=== PATIENT | female | born 1950 | race Hispanic/Latino ===

== ENCOUNTER → 2021-09-04 | Outpatient (CLI) | payer MEDICARE | END | disposition home or self-care (01) | LOC: SHCH 07:56 | PROVIDERS: ATTEND Internal Medicine Cardiovascular Disease | DX: I35.0 Nonrheumatic aortic (valve) stenosis (principal); I25.10 Atherosclerotic heart disease of native coronary artery without angina pectoris; I10 Essential (primary) hypertension; E11.9 Type 2 diabetes mellitus without complications; E78.5 Hyperlipidemia, unspecified | CPT/HCPCS: 93306 ==

== ENCOUNTER 2021-10-13 05:45 | Observation (INO) | payer MEDICARE ==
[2021-10-09 14:49] LABS: BASOPHILS % (AUTO) 0.4 % (0.0-5.0); EOSINOPHILS % (AUTO) 2.5 % (0.0-8.0); HEMATOCRIT 32.3 % (36-48); LYMPHOCYTES % (AUTO) 32.1 % (21.0-51.0); MEAN CORPUSCULAR HGB CONC 32.8 g/dL (32.0-36.0); MEAN CORPUSCULAR VOLUME 88.3 fL (79-99); MONOCYTES % (AUTO) 7.6 % (3.0-13.0); NEUTROPHILS % (AUTO) 56.9 % (40.0-77.0); PLATELET COUNT (AUTO) 230 K/uL (130-400); RED BLOOD CELL COUNT(AUTO) 3.66 MIL/uL (4.00-5.50); RED CELL DISTRIBUTION WIDTH 13.2 % (11.0-15.5); WHITE BLOOD COUNT (AUTO) 9.1 K/uL (4.8-10.8)
[2021-10-09 14:54] LABS: APPEARANCE,URINE CLEAR (CLEAR); BILIRUBIN,URINE NEGATIVE (NEGATIVE); COLOR,URINE YELLOW (YELLOW); GLUCOSE, URINE (UA) NEGATIVE (NEGATIVE); KETONES,URINE NEGATIVE (NEGATIVE); LEUKOCYTE ESTERASE ,URINE TRACE (NEGATIVE); NITRATE,URINE NEGATIVE (NEGATIVE); OCCULT BLOOD,URINE NEGATIVE (NEGATIVE); PROTEIN,URINE NEGATIVE (NEGATIVE); UROBILINOGEN,URINE 0.2 mg/dL (0.2-1.0)
[2021-10-09 14:58] LABS: POTASSIUM 4.6 mmol/L (3.5-5.1)
[2021-10-09 15:01] LABS: INR 0.93 (0.85-1.15); PROTHROMBIN TIME 9.9 SEC (9.6-11.6)
[2021-10-09 15:02] LABS: PARTIAL THROMBOPLASTIN TIME 29.4 SEC (26.3-35.5)
[2021-10-09 15:03] LABS: RBC,URINE None Seen /HPF (0-1)
[2021-10-09 15:04] LABS: BACTERIA,URINE Rare /HPF (None Seen)
[2021-10-09 15:16] LABS: B-TYPE NATRIURETIC PEPTIDE 34 pg/mL (0-100)
[2021-10-10 10:33] VITALS: BP 150/62
[~2021-10-13] VITALS: Ht 152.4 cm; Wt 667.7 kg
[2021-10-13] VITALS (12 sets, daily range): BP systolic 93–146; BP diastolic 43–79
[~2021-10-13 05:45] MED LIST: 0.9% NACL 500ML IV.SOLN 500 ML IV SCH; AMLO-258 PO; ATOR40TA71 PO; CALC-1125 PO; CLOP75TA14 PO; GLYB5TAB8 PO; HYDR25TA PO; LISI40TA9 PO; METF-445 PO; METO-391 PO
[2021-10-13] MEDS ORDERED: 0.9%NACL 1000ML 1,000 ML IV ONE (06:24)
[2021-10-13] MEDS ORDERED: NITROGLYCERIN 50MG VIAL ONE (07:15)
[2021-10-13] MEDS ORDERED: LIDOCAINE HCL-MPF 2% 10ML AMP IJ ONE (07:15)
[2021-10-13] MEDS ORDERED: DiphenhydrAMINE HCL 50 MG/ML VIAL ONE (07:15)
[2021-10-13] MEDS ORDERED: IOHEXOL-350 50ML VIAL IV ONE (07:15)
[2021-10-13] MEDS ORDERED: FAMOTIDINE 20MG VIAL IV ONE (07:16)
[2021-10-13] MEDS ORDERED: IOHEXOL 350 MG/ML 100ML INFUS..BTL IV ONE (07:18)
[2021-10-13] MEDS ORDERED: HEPARIN 10,000 UNIT/10ML (1,000 UNIT/ML) VIAL ONE (08:46)
[2021-10-13] MEDS ORDERED: FENTANYL CITRATE PF 50 MCG/1 ML 2ML VIAL ONE (10:14)
[2021-10-13] MEDS ORDERED: PRASUGREL HCL 10 MG TABLET ONE (10:45)
[2021-10-13] MEDS ORDERED: GLUCAGON 1MG KIT 1 MG ML IM PRN (11:00)
[2021-10-13] MEDS ORDERED: 0.9%NACL 1000ML 1,000 ML IV SCH (11:00)
[2021-10-13] MEDS ORDERED: DEXTROSE 50%-WATER 50 ML DISP.SYRIN IV PRN (11:00)
[2021-10-13] MEDS ORDERED: CILOSTAZOL 100 MG TAB PO SCH (11:00)
[2021-10-13] MEDS: INSULIN HUMULIN R 100 UNIT/ML 3ML SQ SCH ×3 (11:30→21:04)
[2021-10-13] MEDS ORDERED: RIVAROXABAN 2.5 MG TABLET PO SCH (13:00)
[2021-10-13] MEDS: CILOSTAZOL 100 MG TAB PO SCH (21:04)
[2021-10-13] MEDS: RIVAROXABAN 2.5 MG TABLET PO SCH (21:05)
[2021-10-14 03:55] VITALS: BP 122/63
[2021-10-14] MEDS: INSULIN HUMULIN R 100 UNIT/ML 3ML SQ SCH ×3 (06:09→16:47)
[2021-10-14] MEDS: RIVAROXABAN 2.5 MG TABLET PO SCH (07:59)
[2021-10-14] MEDS: CILOSTAZOL 100 MG TAB PO SCH (07:59)
[2021-10-14 08:59] VITALS: BP 125/59
[2021-10-14] MEDS ORDERED: GLYBURIDE 5 MG TABLET PO SCH (10:28)
[2021-10-14] MEDS ORDERED: HYDROCHLOROTHIAZIDE 25 MG TABLET PO SCH (10:28)
[2021-10-14] MEDS ORDERED: AMLODIPINE 5 MG TAB PO SCH (10:29)
[2021-10-14] MEDS ORDERED: CALCIUM CARB 500MG PO SCH (10:30)
[2021-10-14 12:09] VITALS: BP 123/52
[2021-10-14] MEDS ORDERED: CILO100T PO (16:41)
[2021-10-14] MEDS ORDERED: RIVA2.5T PO (16:41)
[2021-10-14] MEDS ORDERED: PRAS10TA9 PO (16:41)
[2021-10-14 16:45] VITALS: BP 131/77
[2021-10-14] MEDS ORDERED: METOPROLOL SUCCINATE 50 MG TAB.SR.24H PO SCH (21:00)
[2021-10-14] MEDS ORDERED: LISINOPRIL 40 MG TABLET PO SCH (21:00)
[2021-10-15] MEDS ORDERED: ATORVASTATIN 40 MG TABLET PO SCH (09:00)
== END 2021-10-14 17:02 | disposition home or self-care (01) ==
LOC: DAH 05:45 → INTOOBSV 05:46 → OBSVTOIN 05:46 → DAHIP 05:46 → DAH 05:46 → 2AH 16:23
PROVIDERS: ADMIT Internal Medicine; ATTEND Internal Medicine
DX: I25.119 Atherosclerotic heart disease of native coronary artery with unspecified angina pectoris (principal); I35.0 Nonrheumatic aortic (valve) stenosis; I10 Essential (primary) hypertension; E11.65 Type 2 diabetes mellitus with hyperglycemia; E16.2 Hypoglycemia, unspecified; E78.5 Hyperlipidemia, unspecified; E78.00 Pure hypercholesterolemia, unspecified; Z79.01 Long term (current) use of anticoagulants; Z79.02 Long term (current) use of antithrombotics/antiplatelets; Z79.84 Long term (current) use of oral hypoglycemic drugs; Z79.899 Other long term (current) drug therapy; Z98.890 Other specified postprocedural states
CPT/HCPCS: 80048; 83880; 85025; 85610; 85730; 81001; 36415 ×2; 71045; 93005; 93460; 93571; 85347 ×3; 82948 ×7; C1769 ×3; C1887 ×2; C1894 ×4; C1760; C1893; C1874; Q9965; G0378 ×30; J1200; J3490 ×3; J3010; J7030; J1644 ×3; Q9967 ×2; J1815 ×4; A4215; A4223 ×3; A4554; A4335; A4222; A4221; A4663; A4216; A4606; C9600

== ENCOUNTER 2021-10-24 10:20 | Emergency (ER) | payer MEDICARE ==
[~2021-10-24] VITALS: Ht 144.8 cm; Wt 66.2 kg
[~2021-10-24 10:20] MED LIST changes: -0.9% NACL 500ML IV.SOLN 500 ML IV SCH; +CILO100T PO; -CLOP75TA14 PO; +PRAS10TA9 PO; +RIVA2.5T PO
[2021-10-24 10:22] VITALS: BP 134/65
== END 2021-10-24 12:38 | disposition home or self-care (01) ==
LOC: EDH 10:20
DX: S30.1XXA Contusion of abdominal wall, initial encounter (principal); E11.9 Type 2 diabetes mellitus without complications; I10 Essential (primary) hypertension; Z88.6 Allergy status to analgesic agent; Z79.84 Long term (current) use of oral hypoglycemic drugs; Z79.899 Other long term (current) drug therapy; Z98.890 Other specified postprocedural states; X58.XXXA Exposure to other specified factors, initial encounter; Y93.89 Activity, other specified; Y92.89 Other specified places as the place of occurrence of the external cause; Y99.8 Other external cause status
CPT/HCPCS: 76882

== ENCOUNTER → 2022-04-15 | Outpatient (CLI) | payer MEDICARE ==
[~2022-04-15] MED LIST changes: -CILO100T PO; +CILO100T3 PO
[2022-04-15 09:31] LABS: CREATININE 1.2 mg/dL (0.5-1.5); POTASSIUM 4.2 mmol/L (3.5-5.1)
== END | disposition home or self-care (01) ==
LOC: LAB 08:33
PROVIDERS: ATTEND Internal Medicine Cardiovascular Disease
DX: I25.10 Atherosclerotic heart disease of native coronary artery without angina pectoris (principal)
CPT/HCPCS: 36415; 80048

== ENCOUNTER → 2022-05-11 | Outpatient (CLI) | payer MEDICARE ==
[~2022-05-11] MED LIST changes: +IOHEXOL 350 MG/ML 100ML INFUS..BTL IV ONE
== END | disposition home or self-care (01) ==
LOC: RAH 05-05 07:40
PROVIDERS: ATTEND Internal Medicine Cardiovascular Disease
DX: I25.10 Atherosclerotic heart disease of native coronary artery without angina pectoris (principal); I51.7 Cardiomegaly; Z95.5 Presence of coronary angioplasty implant and graft
CPT/HCPCS: 74174; 75574; Q9967 ×2

== ENCOUNTER 2024-11-14 06:53 | Day surgery (SDC) | payer MEDICARE ==
--- NOTE | 2024-11-10 10:41 | EKG ---
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
[2024-11-10 11:08] VITALS: BP 129/57; PULSE 67; RESP 18; TEMP 97.7
[2024-11-10 11:08] LABS: IMMATURE GRANULOCYTE ABSOLUTE 0.03 K/uL (0-1); NUCLEATED RED BLOOD CELLS 0.0 % (0.0-0.19); PLATELET COUNT (AUTO) 234 K/uL (130-400); RED BLOOD CELL COUNT(AUTO) 3.35 MIL/uL (4.00-5.50); RED CELL DISTRIBUTION WIDTH 15.6 % (11.0-15.5); WHITE BLOOD COUNT (AUTO) 6.3 K/uL (4.8-10.8)
[2024-11-10 11:25] LABS: INR 0.96 (0.85-1.15)
[2024-11-10 11:32] LABS: CREATININE 1.7 mg/dL (0.5-1.0); GLOMERULAR FILTR. RATE CALC 32.0 mL/min (>90); GLUCOSE,RANDOM 197.0 mg/dL (70-105); SODIUM SERUM 129.0 mmol/L (136-145); UREA NITROGEN, BLOOD 11.0 mg/dL (7-18)
--- NOTE | 2024-11-10 12:56 | NUR ---
report reported sodium and chloride to gladys ervin np. received orders to repeat am of procedure
--- NOTE | 2024-11-11 10:58 | HMCIMG ---
CHEST 1VW REASON: PRE-OP COMPARISON: Prior chest radiograph from 07/14/2022 is available. FINDINGS: Single view of the chest was obtained. Lungs are clear. Heart size is normal. Patient is status post median sternotomy with cardiac prostheses in place. There is a right internal jugular tunneled hemodialysis catheter with tip in superior vena cava.. There is no pulmonary vascular congestion. Mediastinum and bony thorax appear unremarkable. IMPRESSION: 1. No acute cardiac pulmonary process 2. Status post median sternotomy with cardiac breasts in place 3. There is a right-sided hemodialysis catheter with tip in superior vena cava..
[2024-11-14] VITALS (10 sets, daily range): BP systolic 108–163; BP diastolic 42–57; PULSE 52–66; RESP 10–18; TEMP 97–97.7
[~2024-11-14] VITALS: Ht 152.4 cm; Wt 61.2 kg
[~2024-11-14 06:53] MED LIST changes: -AMLO-258 PO; -ATOR40TA71 PO; +AURYXIA PO; -CALC-1125 PO; +CHOL100046 PO; -CILO100T3 PO; +CLOP75TA32 PO; +FOLI0.8T43 PO; -HYDR25TA PO; -IOHEXOL 350 MG/ML 100ML INFUS..BTL IV ONE; +LIDO5CRE2 TP; -LISI40TA9 PO; -METO-391 PO; +METO-408 PO; -PRAS10TA9 PO; -RIVA2.5T PO; +ROSU40TA88 PO; +SACU1TAB7 PO
[2024-11-14] MEDS: 0.9%NACL 1000ML 1,000 ML IV SCH (07:38)
[2024-11-14 07:41] LABS: CREATININE 2.9 mg/dL (0.5-1.0); GLOMERULAR FILTR. RATE CALC 17.0 mL/min (>90); GLUCOSE,RANDOM 147.0 mg/dL (70-105); SODIUM SERUM 132.0 mmol/L (136-145); UREA NITROGEN, BLOOD 28.0 mg/dL (7-18)
[2024-11-14] MEDS ORDERED: LIDOCAINE HCL 400MG/20ML VIAL ONE (10:06)
[2024-11-14] MEDS ORDERED: MIDAZOLAM HCL 1 MG/ML 2ML VIAL ONE (10:07)
[2024-11-14] MEDS ORDERED: HEParin-NS 1,000 UNIT/500 ML 1,000 ML IV ONE (10:07)
[2024-11-14] MEDS ORDERED: IOHEXOL 350 MG/ML 100ML INFUS..BTL IV ONE (10:07)
[2024-11-14] MEDS ORDERED: NITROGLYCERIN 50MG VIAL ONE (10:08)
[2024-11-14] MEDS ORDERED: FAMOTIDINE 20MG VIAL IV ONE (10:09)
[2024-11-14] MEDS ORDERED: IOHEXOL-350 50ML VIAL IV ONE (10:31)
[2024-11-14] MEDS ORDERED: DEXTROSE 50%-WATER 50 ML DISP.SYRIN IV PRN (11:30)
[2024-11-14] MEDS ORDERED: GLUCAGON 1MG KIT 1 MG ML IM PRN (11:30)
--- NOTE | 2024-11-14 11:54 | PRN ---
DATE OF PROCEDURE: 11/14/2024 PROCEDURE PERFORMED: LEFT HEART CATHETERIZATION, LEFT VENTRICULOGRAM, RIGHT AND LEFT SELECTIVE CORONARY ANGIOGRAM, RIGHT COMMON FEMORAL ANGIOGRAM, AND PERCLOSE SUTURE CLOSURE OF THE RIGHT COMMON FEMORAL ARTERY WITH CONSCIOUS SEDATION. NATIONAL SALES MANAGER: Rangel Lee MD, [facility] INDICATION: Transient decline in ejection fraction in the setting of sepsis syndrome 07/24/2024, rule out prox to mid LAD stent restenosis. PROCEDURE NOTE: After informed consent was obtained the patient was prepped and draped in the usual sterile fashion. A 6 Beninese arterial sheath was inserted in the right femoral artery using a modified Seldinger technique with a front wall, first pass puncture. This was performed after fluoroscopic identification of bony landmarks to facilitate a more accurate puncture of the right common femoral artery. The arterial sheath was aspirated and flushed. A 6 Beninese pigtail catheter was then advanced over a J-tipped guidewire to the ascending aorta and was prolapsed into the left ventricle. The catheter was aspirated and flushed and pressure measurements were obtained. A left ventriculogram was then performed in a 30 SANTOS projection. A pullback procedure was then performed, and this catheter was removed over a J-tipped guidewire. A 6F JL-4 was then advanced to the ascending aorta over a J-tipped guidewire, was aspirated and flushed, and was used for selective left coronary angiograms in multiple obliquities. A JR-4 was advanced in a similar fashion to the ascending aorta over a J-tipped guidewire and was used for selective right coronary angiograms in multiple obliquities with findings as outlined below. A right common femoral angiogram was performed to assess suitability for Perclose suture closure and the Perclose device was deployed in standard fashion. Perclose suture closure was successful without bleeding or hematoma. The patient tolerated the procedure well and was returned to the holding area in stable condition. FINDINGS: LEFT HEART HEMODYNAMICS: The patient's LVEDP was 14 mm of mercury before the LV-gram in 13 mm of mercury after the LV-gram LEFT VENTRICULOGRAM: There was mild anterior hypokinesis with well-preserved LV systolic function and an LVEF of 60-65%. There was no angiographic MR. CORONARY ANGIOGRAM: LEFT MAIN: The left main coronary artery is normal. LEFT ANTERIOR DESCENDING: Had a widely patent 2.5 x 22 mm Medtronic Resolute Tolstoy drug-eluting stent from 10/13/2021. The proximal, mid, and distal LAD were normal. The 1st diagonal branch exited the mid stent and had a 40% ostial stenosis. The 2nd diagonal was normal. LEFT CIRCUMFLEX: The left circumflex was nondominant and had two tandem 20% stenoses and was otherwise normal. A tiny OM1 was normal. The OM2 was large and bifurcated distally and had a 30% proximal stenosis. RAMUS INTERMEDIATE BRANCH: There was a tiny normal ramus intermediate branch. RIGHT CORONARY ARTERY: The right coronary artery was dominant and had a 40% proximal stenosis, 30% mid stenosis, and 40% mid to distal stenosis. The PDA and two posterolateral ventricular branches were normal. IMPRESSION: Normal LV systolic function with mild anteroapical hypokinesis and LVEF of 60- 65%. There was no angiographic MR. Normally functioning 21 mm Simons Inspirus bioprosthesis from 07/09/2022 Widely patent proximal to mid LAD 2.5 x 22 mm Medtronic Resolute Olu drug- eluting stent from 10/13/2021. Minor nonobstructive CAD in the left circumflex with two tandem 20% proximal stenoses and a 30% OM2 stenosis only. Minor nonobstructive CAD in the RCA with a 40% proximal stenosis, 30% mid stenosis, and 40% mid to distal stenosis. RECOMMENDATION: Continued risk factor modification. Target LDL less than 55 given type 2 diabetes COMPLICATIONS OF PROCEDURE: None, the patient tolerated the procedure well and was returned to her room in stable condition. HEMOSTASIS: Perclose suture closure successful without bleeding or hematoma. ESTIMATED BLOOD LOSS: Less than 5 mL. CONTRAST TOTAL: 115 mL. RANGEL LEE MD Nov 14, 2024 11:54
--- NOTE | 2024-11-14 12:15 | NUR ---
URINARY: VOIDED 400CC CLEAR YELLOW COLOR URINE PER URINAL WITHOUT DIFFICULTY.
--- NOTE | 2024-11-14 14:24 | NUR ---
report: hand-off communication given to edvin sosa rn.
--- NOTE | 2024-11-14 15:00 | NUR ---
BOTH PT AND SPOUSE GIVEN VERBAL AND WRITTEN DISCHARGE INSTRUCTIONS IV REMOVED SITE ASYMPTOMATIC. PT TAKEN OUT VIA WHEELCHAIR SPOUSE DRIVING
== END 2024-11-14 15:10 | disposition home or self-care (01) ==
LOC: DAH 06:53
PROVIDERS: ATTEND Internal Medicine Cardiovascular Disease
DX: I25.10 Atherosclerotic heart disease of native coronary artery without angina pectoris (principal); E78.5 Hyperlipidemia, unspecified; I45.10 Unspecified right bundle-branch block; I25.5 Ischemic cardiomyopathy; I12.0 Hypertensive chronic kidney disease with stage 5 chronic kidney disease or end stage renal disease; E11.22 Type 2 diabetes mellitus with diabetic chronic kidney disease; N18.6 End stage renal disease; Z88.6 Allergy status to analgesic agent; Z95.5 Presence of coronary angioplasty implant and graft; Z79.84 Long term (current) use of oral hypoglycemic drugs; Z79.899 Other long term (current) drug therapy; Z98.890 Other specified postprocedural states
CPT/HCPCS: 80048 ×2; 83880; 85025; 85610; 85730; 36415 ×2; 71045; 93005; 93458; 82948 ×2; 99156; 99157 ×2; C1894 ×2; C1760; J1200; J1308; J3010; J3490 ×2; J7030; J2250; J1644; Q9967 ×2; A4215; A4222; A4221; A4663; A4216; A4606; Q9965; A4223 ×3